=== PATIENT | female | born 1985 | race Caucasian/White ===

== ENCOUNTER → 2016-07-04 | Outpatient (CLI) | payer BC ==
--- NOTE | 2016-07-04 14:25 | RAD ---
History: Right hip pain. Pelvis: AP film is obtained. No bony abnormality or acute injury. Sacroiliac joints are normal. IMPRESSION: Negative pelvis. Electronically signed by: Kateryna Adamson MD 07/04/2016 2:24 PM PHARMACY SCHEDULER
--- NOTE | 2016-07-08 00:47 | RAD ---
History: Right hip pain. Pelvis: AP film is obtained. No bony abnormality or acute injury. Sacroiliac joints are normal. IMPRESSION: Negative pelvis. Electronically signed by: Kateryna Adamson MD 07/04/2016 2:24 PM CLINIC SUPERVISOR
== END | disposition home or self-care (01) ==
LOC: RAD 08:14
PROVIDERS: ATTEND Orthopaedic Surgery
DX: M25.551 Pain in right hip (principal)

== ENCOUNTER → 2016-11-18 | Outpatient (CLI) | payer BC | END | disposition home or self-care (01) | LOC: LAB.O 15:35 | PROVIDERS: ATTEND Family Medicine | DX: N92.5 Other specified irregular menstruation (principal) ==

== ENCOUNTER → 2017-02-08 | Outpatient (CLI) | payer BC | END | disposition home or self-care (01) | LOC: LAB.O 10:31 | PROVIDERS: ATTEND Obstetrics & Gynecology | DX: R19.09 Other intra-abdominal and pelvic swelling, mass and lump (principal) ==

== ENCOUNTER → 2017-02-15 | Outpatient (CLI) | payer BC | END | disposition home or self-care (01) | LOC: LAB.O 10:10 | PROVIDERS: ATTEND Obstetrics & Gynecology | DX: N83.9 Noninflammatory disorder of ovary, fallopian tube and broad ligament, unspecified (principal); N83.209 Unspecified ovarian cyst, unspecified side ==

== ENCOUNTER → 2019-05-13 | Outpatient (CLI) | payer BC ==
--- NOTE | 2019-05-13 16:24 | US ---
US THYROID CLINICAL STATEMENT: THYROID NODULE. . No prior thyroid surgery or therapy. No history of thyroid cancer. COMPARISON: None TECHNIQUE: Transcutaneous scanning, grayscale and Doppler modes. FINDINGS: Size right thyroid lobe: 5.3 x 1.6 x 0.9 cm Size left thyroid lobe: 4.7 x 1.9 x 1.6 cm Size isthmus: 0.26 cm Estimated total number of nodules greater than or equal to 1 cm: 1 Nodule 1: Size: 1.7 x 1.3 x 0.9 cm Location: Left Lower Composition: cystic or completely cystic: 0 points. Small mural nodules. Echogenicity: hypoechoic: 2 points Shape: wider than tall: 0 points Margins: smooth: 0 points wall thickening. Echogenic foci: none: 0 points. ACR Total Points: 2; ACR TI-RADS risk category: TR2 - nonsuspicious nodule. Nodule 2: Size: 0.5 x 0.5 x 0.3 cm Location: Right Lower Composition: solid or almost completely solid: 2 points Echogenicity: very hypoechoic: 3 points Shape: wider than tall: 0 points Margins: smooth: 0 points Echogenic foci: large comet tail artefact: 0 points ACR Total Points: 5; ACR TI-RADS risk category: TR4 - moderately suspicious nodule. No dominant solid mass or distinct cyst or large calcifications in the surrounding soft tissues. IMPRESSION: 1. Nodule 1: ACR TI-RADS 2017 Category TR2. Recommend: No further follow-up.. Recommendations based upon [facility] [employer] [facility] recommendations and ACR TI-RADS 2017 guidelines. Please see below*. 2. Nodule 2: ACR TI-RADS 2017 Category TR4. Recommend: No further follow-up. 3. Soft tissue around the thyroid gland is unremarkable. *ACR TI-RADS 2017 Recommendations for imaging follow-up of nodules: TR1: No FNA or follow up TR2: No FNA or follow up TR3: FNA if >/= 2.5 cm, follow up if 1.5 - 2.4 cm in 1, 3, and 5 years TR4: FNA if >/= 1.5 cm, follow up if 1.0 - 1.4 cm in 1, 2, 3, and 5 years TR5: FNA if >/= 1.0 cm, follow up if 0.5 - 0.9 cm every year for 5 years ACR TI-RADS recommends that no more than two nodules with the highest ACR TI-RADS total point should be biopsied and no more than four nodules should be followed. These recommendations do not apply to patients with increased risk for thyroid cancer or patients with symptomatic thyroid disease. Electronically signed by: Paramjit Aguilar MD 05/13/2019 4:22 PM [facility]
== END ==
LOC: LAB.O 10:35
PROVIDERS: ATTEND Family Medicine
DX: E04.1 Nontoxic single thyroid nodule (principal)

== ENCOUNTER → 2019-12-20 | Outpatient (CLI) | payer BC | LOC: GMAL 11:26 | PROVIDERS: ATTEND Family Medicine | DX: D51.9 Vitamin B12 deficiency anemia, unspecified (principal); R53.83 Other fatigue; E55.9 Vitamin D deficiency, unspecified ==

== ENCOUNTER → 2020-04-19 | Outpatient (CLI) | payer BC | LOC: GMAL 17:22 | PROVIDERS: ATTEND Family Medicine | DX: D51.9 Vitamin B12 deficiency anemia, unspecified (principal); E04.1 Nontoxic single thyroid nodule; E78.49 Other hyperlipidemia ==

== ENCOUNTER → 2020-04-28 | Outpatient (CLI) | payer BC | LOC: GMAL 12:57 | PROVIDERS: ATTEND Family Medicine | DX: E34.9 Endocrine disorder, unspecified (principal) ==